=== PATIENT | female | born 1985 | race Caucasian/White ===

== ENCOUNTER 2017-01-09 18:32 | Inpatient (IN) | payer MEDICAID ==
[2017-01-09 18:32] VITALS: BMI 26.6
[2017-01-09 19:48] LABS: RBC URINE 7 /hpf (0-3); URINE BACTERIA RARE (<OCC); URINE BILIRUBIN NEGATIVE (NEGATIVE); URINE BLOOD 1+ (NEGATIVE); URINE COLOR Yellow (YELLOW); URINE GLUCOSE (UA) 3+ mg/dL (Normal); URINE KETONE TRACE mg/dL (NEGATIVE); URINE LEUKOCYTE ESTERASE NEG Leu/uL (Negative); URINE PROTEIN NEGATIVE (NEGATIVE); URINE UROBILINOGEN NORMAL mg/dL (0.2-1.0); WBC URINE 2 /hpf (0-5)
--- NOTE | 2017-01-09 19:55 | C.PDOC ---
History Of Present Illness 31 y/o female pmhx schizophrenia, bipolar presents to the ED with complains of hearing voices. Pt states voices are not telling her to hurt herself or others. Pt also reports sleeping 20 hours every day, polyuria and polydypsia. Pt has insulin pump but does not currently have it on. Denies fever, chills, headache, vomiting or any other complaints. Time Seen by Provider: 01/09/17 19:13 Chief Complaint (Nursing): Psychiatric Evaluation History Per: Patient History/Exam Limitations: no limitations Onset/Duration Of Symptoms: Hrs Current Symptoms Are (Timing): Still Present Modifying Factor(s): None Associated Symptoms: denies: Suicidal Thoughts Involuntary Hold By: None Recent travel outside of the [place]: No Past Medical History Reviewed: Historical Data, Nursing Documentation, Vital Signs Vital Signs: Last Vital Signs Temp 98.4 F 01/09/17 19:15 Pulse 81 01/09/17 19:15 Resp 14 01/09/17 19:15 BP 128/73 01/09/17 19:15 Pulse Ox 100 01/09/17 20:34 - Medical History PMH: Anxiety, Asthma, Bipolar Disorder, Depression, Diabetes, HIV (Pt denies ), Hypothyroidism, Schizophrenia, Sexually Transmitted Disease (Herpes) Surgical History: Cholecystectomy - [facility] Procedures OTHER SKIN & SUBQ I D (04/20/14) Family History: States: Unknown Family Hx - Social History Hx Tobacco Use: No Hx Alcohol Use: Yes Hx Substance Use: Yes - Immunization History Hx Tetanus Toxoid Vaccination: No Hx Influenza Vaccination: Yes Hx Pneumococcal Vaccination: No Review Of Systems Except As Marked, All Systems Reviewed And Found Negative. Constitutional: Negative for: Fever Cardiovascular: Negative for: Chest Pain Respiratory: Negative for: Shortness of Breath Gastrointestinal: Negative for: Nausea, Vomiting Genitourinary: Positive for: Other (polyuria, polydypsia) Neurological: Negative for: Headache Psych: Positive for: Other (hearing voices). Negative for: Suicidal ideation Physical Exam - Physical Exam Appears: Non-toxic, No Acute Distress, Other (morbidly obese, calm and cooperative) Skin: Warm, Dry, No Rash Head: Atraumatic, Normacephalic Oral Mucosa: Moist Neck: Normal, Normal ROM, Supple Chest: Symmetrical Cardiovascular: Rhythm Regular, No Murmur Respiratory: Normal Breath Sounds, No Rales, No Rhonchi, No Wheezing Gastrointestinal/Abdominal: Normal Exam, Soft, No Tenderness Extremity: Normal ROM Extremity: Bilateral: Atraumatic Neurological/Psych: Oriented x3, Normal Speech ED Course And Treatment - Laboratory Results Result Diagrams: 01/09/17 20:00 01/09/17 20:00 Lab Interpretation: Abnormal (hyperglycemia) Urine POC: Negative (tox neg.) O2 Sat by Pulse Oximetry: 100 (room air) Pulse Ox Interpretation: Normal Progress Note: Plan: labs, UA, BGL Reevaluation Time: 20:58 Reassessment Condition: Improved Medical Decision Making Medical Decision Making: poorly controlled DM, POC 395, pt engaged her own insulin pump 2100: schizo vs bipolar? poorly controlled DM may be monitored with FS QAC/HS, using pt's own insulin pump for optimal insulin administration Disposition Doctor Will See Patient In The: Hospital Counseled Patient/Family Regarding: Studies Performed, Diagnosis - Disposition Disposition: HOSPITALIZED Disposition Time: 20:59 Condition: GOOD - Clinical Impression Clinical Impression: Hyperglycemia, Schizo affective schizophrenia - Scribe Statement The provider has reviewed the documentation as recorded by the Royce Sena Provider Attestation: All medical record entries made by the Royce were at my direction and personally dictated by me. I have reviewed the chart and agree that the record accurately reflects my personal performance of the history, physical exam, medical decision making, and the department course for this patient. I have also personally directed, reviewed, and agree with the discharge instructions and disposition.
[2017-01-09 20:02] LABS: BASO # 0.1 K/uL (0.0-0.2); BASO % 0.9 % (0.0-2.0); EOS # 0.2 K/uL (0.0-0.7); EOS % 1.8 % (0.0-4.0); HEMATOCRIT 40.4 % (34.0-47.0); LYMPH # 2.1 K/uL (1.0-4.3); LYMPH % 21.7 % (20.0-40.0); MEAN CELL VOLUME 79.5 fL (81.0-99.0); MEAN CORPUSCULAR HEMOGLOBIN 25.1 pg (27.0-31.0); MEAN CORPUSCULAR HGB CONC 31.5 g/dL (33.0-37.0); MEAN PLATELET VOLUME 9.9 fL (7.2-11.7); MONO # 0.4 K/uL (0.0-0.8); MONO % 4.3 % (0.0-10.0); RED CELL DISTRIBUTION WIDTH 14.4 % (11.5-14.5); WHITE BLOOD COUNT 9.7 K/uL (4.8-10.8)
[2017-01-09 20:10] LABS: CHLORIDE 101 mmol/L (98-107)
[2017-01-09 20:11] LABS: POTASSIUM 4.4 mmol/L (3.6-5.2); SODIUM 134 mmol/L (132-148)
[2017-01-09 20:13] LABS: ALB/GLOB RATIO 1.1 (1.0-2.1); ALKALINE PHOSPHATASE 64 U/L (38-126); ALT/SGPT 18 U/L (9-52); AST/SGOT 23 U/L (14-36); BILIRUBIN,TOTAL 0.7 mg/dL (0.2-1.3); BLOOD UREA NITROGEN 12 mg/dL (7-17); CARBON DIOXIDE 22 mmol/L (22-30); GFR AFRICAN-AMERICAN > 60; TOTAL PROTEIN 7.1 g/dL (6.3-8.3)
[2017-01-09 20:14] LABS: ALCOHOL SERUM < 10 mg/dl (0-10); CALCIUM 8.5 mg/dl (8.6-10.4)
[2017-01-09 20:16] LABS: GLUCOSE,RANDOM 415 mg/dL (65-105)
[2017-01-10] MEDS ORDERED: Pneumococcal 23-Valent Vaccine IM ONE (01:08)
[2017-01-10 11:13] VITALS: O2SAT 99
[2017-01-10] MEDS: Patient's Own Injectable INJ SCH ×2 (16:42→21:10)
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
[2017-01-11] MEDS ORDERED: Levothyroxine 100 MCG TAB PO SCH (06:30)
[2017-01-11] MEDS: Levothyroxine 100 MCG TAB PO SCH (06:47)
[2017-01-11 07:30] VITALS: RESP 16
--- NOTE | 2017-01-11 14:29 | PCM.PYCHPN ---
Psychiatric Progress Note - Psychiatric Progress Note Patient seen today, length of contact: 15 minutes Patient Chief Complaint: I'm feeling much better Problems Identified/Issues Discussed: Patient seen. Chart reviewed. Case discussed with the staff. Issues related to illness and treatment were discussed with the patient. Reported compliant with treatment with no adverse affects. Tolerating treatment very well. Reported feeling much better with the treatment. Her blood sugar despite using insulin pump is note in control. Waiting for an freight adjuster to evaluate the patient. At the time of evaluation, patient was awake alert oriented 3, had no delusions, no auditory or visual hallucinations, no suicidal ideations or homicidal ideations. Medical Problems: Diabetes mellitus Lupus Hypothyroidism Arthritis Obesity Diagnostic Results: Reviewed Medication Change: No Medical Record Reviewed: Yes Consults ordered or reviewed: Operating Cost Clerk Mental Status Examination - Cognitive Function Orientation: Person, Place, Situation, Time Memory: Intact Attention: WNL Concentration: WNL Association: WN Fund of Knowledge: [facility] Decription of patient's judgement and insights: Fair - Mood Mood: Depressed (Less than before) - Affect Affect: Depressed - Speech Speech: Appropriate - Formal Thought Process Formal Thought Process: No Impairment Psychotic Thoughts and Behaviors: None - Suicidal Ideation Suicidal Ideation: No - Homicidal Ideation Homicidal Ideation: No Goal/Treatment Plan - Goal/Treatment Plan Need for Continued Stay: Remain at risks for inpatient hospitalization, Discharge may exacerbated symptoms, Severe functional impairment Progress Toward Problem(s) and Goals/Treatment Plan: Patient education Supportive therapy Continue treatment as before Estimated Date of D/C: 01/17/17 - Smoking Cessation Smoking Cessation Initiated: No Reason for not providing: Patient doesn't smoke cigarettes
[2017-01-11] MEDS: Patient's Own Injectable INJ SCH ×4 (14:45→21:07)
--- NOTE | 2017-01-11 17:39 | CP.PCM.CON ---
<Karen Pichardo - Last Filed: 01/11/17 20:16> History of Present Illness - History of Present Illness History of Present Illness: Medicine Consult: DM1, Hypothyroid, Vaginal bleeding, Lupus. 31 y/o female with PMHx of Lupus, Anxiety, Hypothyroid, Bipolar Disorder, Depression, DM 1, Schizophrenia being evaluated for chronic medical problems. Patient has been having Accuchecks above 400, while on her insulin pump (Humalog ). She takes basal rate of 1.7. Nursing put it up to 2.0 today. Patient has been on pump for the past 5 years. Patient reports accuchecks are usually <300 at home. Patient also admits to body aches/back pain for the past 1 day. She attributes symptoms to Lupus. She take Plaqeinil at home, but has not taken it for the past day. Admits to 100 lb weight gain over the past 6 months. During that time she was only "eating and sleeping". Denies use of steroids recently . Patient also complaining of 3 week history of heavy periods. Patient went to see Financial Economist 2 weeks ago who gave her Provera pill for 5 days. Pill stopped her period for those 5 days but it has since returned. Bed Operator told her "everything was fine". She has had these heavy periods one other time when she was 17. Denies Hx of fibroids or pelvic pain. PMD: Dr. Jimenez Rhumatologist: Dr. Zamudio PMHx: Lupus, Anxiety, Hypothyroid, Bipolar Disorder, Depression, DM 1, Schizophrenia. Medications: Humalog pump, Synthroid 100 mcg daily, Plaquanil, psych meds. Allergies: Lantus (swelling). Social: denies tobacco and drug use. Admits to social alcohol use. SHx: 2 , cholecystectomy. FHx: father with DM, brother and sister with DM, grand parents on both sides with DM. MGM with [place]. Review of Systems - Constitutional Constitutional: Fatigue, Weight Gain. absent: Chills, Fever, Headache - EENT Eyes: absent: Blurred Vision, Change in Vision Nose/Mouth/Throat: Nasal Congestion. absent: Nasal Discharge - Cardiovascular Cardiovascular: Pedal Edema. absent: Chest Pain, Dyspnea, Leg Edema, Palpitations - Respiratory Respiratory: absent: Cough, Dyspnea, Wheezing - Gastrointestinal Gastrointestinal: Constipation. absent: Abdominal Pain, Diarrhea, Nausea, Vomiting - Genitourinary Genitourinary: absent: Difficulty Urinating, Dysuria - Musculoskeletal Musculoskeletal: Back Pain, Numbness, Tingling (hands) - Integumentary Integumentary: absent: Change in Hair, Hirsutism, Lesions - Neurological Neurological: Numbness, Tingling. absent: Dizziness, Headaches, Syncope, Weakness - Psychiatric Psychiatric: Anxiety, Depression - Endocrine Endocrine: Fatigue. absent: Palpitations Past Patient History - Infectious Disease Hx of Infectious Diseases: None - Past Social History Smoking Status: Former Smoker - CARDIAC Hx Hypertension: No - PULMONARY Hx Asthma: Yes (uses adelara) - NEUROLOGICAL Hx Neurological Disorder: No Hx Seizures: No - HEENT Hx HEENT Problems: No - RENAL Hx Chronic Kidney Disease: No - ENDOCRINE/METABOLIC Hx Diabetes Mellitus Type 1: Yes (as a child) Hx Diabetes Mellitus Type 2: Yes (uses her own insulin pump) Hx Hypothyroidism: Yes (synthroid 100 mcg od) Hx Systemic Lupus Erythematosus: Yes (butterfly face) - HEMATOLOGICAL/ONCOLOGICAL Hx Blood Disorders: No Hx Human Immunodeficiency Virus (HIV): No - INTEGUMENTARY Hx Dermatological Problems: Yes Other/Comment: r/t lupus (butterfly face) - MUSCULOSKELETAL/RHEUMATOLOGICAL Hx Musculoskeletal Disorders: No - GASTROINTESTINAL Hx Gastrointestinal Disorders: No - GENITOURINARY/GYNECOLOGICAL Hx Sexually Transmitted Disorders: Yes (Herpes) - PSYCHIATRIC Hx Substance Use: No - SURGICAL HISTORY Hx Surgeries: Yes Hx Section: Yes (2) Hx Cholecystectomy: Yes Hx Tubal Ligation: Yes - ANESTHESIA Hx Anesthesia: No Hx Anesthesia Reactions: No Hx Malignant Hyperthermia: No Meds Allergies/Adverse Reactions: Allergies Allergy/AdvReac Type Severity Reaction Status Date / Time insulin glargine, human Allergy Severe Verified 03/30/16 13:06 recombin. a [From Lantus] - Medications Medications: Current Medications Aripiprazole (Abilify) 30 mg PO HS [facility] Last Admin: 01/10/17 21:04 Dose: 30 mg Escitalopram Oxalate (Lexapro) 20 mg PO DAILY [facility] Last Admin: 01/11/17 10:34 Dose: 20 mg Haloperidol (Haldol) 5 mg PO Q6 PRN PRN Reason: Agitation Haloperidol (Haldol) 5 mg PO HS [facility] Last Admin: 01/10/17 21:01 Dose: 5 mg Home Med (Patient's Own Injectable) 0 unit INJ ACHS [facility] Last Admin: 01/11/17 16:52 Dose: 16.1 unit Hydroxychloroquine Sulfate (Plaquenil) 200 mg PO BID [facility] Last Admin: 01/11/17 10:34 Dose: 200 mg Hydroxyzine HCl (Atarax) 50 mg PO Q6 PRN PRN Reason: Anxiety Last Admin: 01/11/17 12:35 Dose: 50 mg Ibuprofen (Motrin Tab) 600 mg PO Q6H PRN PRN Reason: Pain, severe (8-10) Last Admin: 01/11/17 16:56 Dose: 600 mg Levothyroxine Sodium (Synthroid) 100 mcg PO DAILY@0630 [facility] Last Admin: 01/11/17 06:47 Dose: 100 mcg Lorazepam (Ativan) 1 mg PO Q6 PRN PRN Reason: severe anxiety Topiramate (Topamax) 100 mg PO BID [facility] Last Admin: 01/11/17 10:34 Dose: 100 mg Trazodone HCl (Desyrel) 100 mg PO HS PRN PRN Reason: Insomnia Last Admin: 01/10/17 21:01 Dose: 100 mg Physical Exam - Constitutional Appears: No Acute Distress - Head Exam Head Exam: NORMAL INSPECTION, NORMOCEPHALIC - Eye Exam Eye Exam: EOMI, Normal appearance - ENT Exam ENT Exam: Mucous Membranes Moist - Neck Exam Neck exam: Positive for: Full Rom, Normal Inspection - Respiratory Exam Respiratory Exam: Clear to Auscultation Bilateral, NORMAL BREATHING PATTERN - Cardiovascular Exam Cardiovascular Exam: REGULAR RHYTHM, +S1, +S2 - GI/Abdominal Exam GI & Abdominal Exam: Normal Bowel Sounds, Soft. absent: Tenderness - Extremities Exam Extremities exam: Positive for: pedal edema. Negative for: tenderness - Back Exam Back exam: NORMAL INSPECTION, paraspinal tenderness - Neurological Exam Neurological exam: Alert, Oriented x3 - Psychiatric Exam Psychiatric exam: Normal Affect, Normal Mood - Skin Skin Exam: Dry, Normal Color, Warm Results - Vital Signs Recent Vital Signs: Last Vital Signs Temp 98.3 F 01/11/17 07:29 Pulse 96 H 01/11/17 16:26 Resp 16 01/11/17 07:29 BP 102/61 01/11/17 16:26 Pulse Ox 99 01/10/17 11:12 - Labs Result Diagrams: 01/09/17 20:00 01/09/17 20:00 Labs: Laboratory Results - last 24 hr 01/10/17 01/11/17 01/11/17 20:31 07:25 11:18 POC Glucose (mg/dL) 480 H* 372 H 397 H 01/11/17 15:47 POC Glucose (mg/dL) 463 H* Assessment & Plan (1) Diabetes type 1, uncontrolled Assessment and Plan: ACCUCHECKS ACHS Patient on Abilify which increases glucose Continue Insulin pump at basal rate 2.0. with AC boluses. f/u Hgb A1C Status: Acute (2) Menorrhagia Assessment and Plan: f/u TV/TA pelvic US f/u FSH, prolactin f/u Iron studies and CBC in the AM Status: Acute (3) Lupus (systemic lupus erythematosus) Assessment and Plan: Continue Plaquenil PO daily Status: Acute (4) Back pain Assessment and Plan: f/u X-ray of L-spine Status: Acute (5) Hypothyroid Assessment and Plan: Continue home dose of Synthroid 100 mcg daily f/u TSH Status: Acute (6) Schizo affective schizophrenia Assessment and Plan: Management as per psych team Status: Acute (7) Bipolar 1 disorder Assessment and Plan: Management as per psych team Status: Acute <Staci Whitehead V - Last Filed: 03/25/17 23:37> Results - Vital Signs Recent Vital Signs: Last Vital Signs Temp 97 F L 01/12/17 08:08 Pulse 83 01/12/17 08:08 Resp 16 01/12/17 08:08 BP 108/78 01/12/17 08:08 Pulse Ox 99 01/10/17 11:12 - Labs Result Diagrams: 01/12/17 07:08 01/12/17 07:08 Attending/Attestation - Attestation I have personally seen and examined this patient.: Yes I have fully participated in the care of the patient.: Yes I have reviewed all pertinent clinical information: Yes Notes (Text): This is late computer entry for 01/11/17. Patient seen, examined, and case discussed with day-time resident. Medicine consulted for uncontrolled sugars in patient with history of type 1 diabetes, who uses insulin pump and is knowledge about her insulin pump, as well as co-morbidities including merrorhagia, lupus, hypothyroidism, and obesity. Discussed and agree with the assessment and plan as written by day time resident.
[2017-01-11] MEDS ORDERED: POLYETHYLENE GLYCOL 3350 17 GM/Dose PACKET PO ONE (18:45)
--- NOTE | 2017-01-12 05:12 | CP.PCM.PN ---
<Anthony Neely - Last Filed: 01/12/17 08:11> Subjective - Date & Time of Evaluation Date of Evaluation: 01/12/17 Time of Evaluation: 05:09 - Subjective Subjective: PGY-1 progress note Pt seen and examined at bedside. Nursing reports increase in basal rate of insulin pump to 2 yesterday evening, with elevated but decreasing blood sugar overnight. Pt reports continued heavy menstrual period bleeding. She reports changing her pad 3-4 times per day, with period lasting "several weeks." She has seen her DRY TRANSFER WORKER and was given provera in the past to stop bleeding. She denies dizziness, confusion, chest pain, abd pain, N/V/D/C. Objective - Vital Signs/Intake and Output Vital Signs (last 24 hours): Temp Pulse Resp BP Pulse Ox 98.3 F 96 H 16 102/61 99 01/11/17 07:29 01/11/17 16:26 01/11/17 07:29 01/11/17 16:26 01/10/17 11:12 - Medications Medications: Current Medications Aripiprazole (Abilify) 30 mg PO [facility] Last Admin: 01/11/17 21:07 Dose: 30 mg Escitalopram Oxalate (Lexapro) 20 mg PO DAILY [facility] Last Admin: 01/11/17 10:34 Dose: 20 mg Haloperidol (Haldol) 5 mg PO Q6 PRN PRN Reason: Agitation Haloperidol (Haldol) 5 mg PO [facility] Last Admin: 01/11/17 21:07 Dose: 5 mg Home Med (Patient's Own Injectable) 0 unit INJ ACHS [facility] Last Admin: 01/11/17 21:07 Dose: 11.8 unit Hydroxychloroquine Sulfate (Plaquenil) 200 mg PO BID [facility] Last Admin: 01/11/17 18:23 Dose: 200 mg Hydroxyzine HCl (Atarax) 50 mg PO Q6 PRN PRN Reason: Anxiety Last Admin: 01/11/17 12:35 Dose: 50 mg Ibuprofen (Motrin Tab) 600 mg PO Q6H PRN PRN Reason: Pain, severe (8-10) Last Admin: 01/11/17 16:56 Dose: 600 mg Levothyroxine Sodium (Synthroid) 100 mcg PO DAILY@0630 [facility] Last Admin: 01/11/17 06:47 Dose: 100 mcg Lorazepam (Ativan) 1 mg PO Q6 PRN PRN Reason: severe anxiety Topiramate (Topamax) 100 mg PO BID [facility] Last Admin: 01/11/17 18:23 Dose: 100 mg Trazodone HCl (Desyrel) 100 mg PO HS PRN PRN Reason: Insomnia Last Admin: 01/11/17 21:07 Dose: 100 mg - Constitutional Appears: No Acute Distress - Head Exam Head Exam: NORMAL INSPECTION, NORMOCEPHALIC - Eye Exam Eye Exam: EOMI Pupil Exam: PERRL - ENT Exam ENT Exam: Mucous Membranes Moist - Respiratory Exam Respiratory Exam: Clear to Ausculation Bilateral, NORMAL BREATHING PATTERN - Cardiovascular Exam Cardiovascular Exam: REGULAR RHYTHM, +S1, +S2 - GI/Abdominal Exam GI & Abdominal Exam: Soft, Normal Bowel Sounds - Extremities Exam Extremities Exam: Pedal Edema - Neurological Exam Neurological Exam: Alert, Awake, Oriented x3 - Psychiatric Exam Psychiatric exam: Normal Affect - Skin Skin Exam: Normal Color, Warm Assessment and Plan - Assessment and Plan (Free Text) Plan: (1) Diabetes type 1, uncontrolled Assessment and Plan: ACCUCHECKS ACHS Patient on Abilify which increases glucose Continue Insulin pump at basal rate 2.0. with AC boluses. f/u Hgb A1C (2) Menorrhagia Assessment and Plan: f/u TV/TA pelvic US f/u FSH, prolactin f/u Iron studies and CBC in the AM (3) Lupus (systemic lupus erythematosus) Assessment and Plan: Continue Plaquenil PO daily (4) Back pain Assessment and Plan: f/u X-ray of L-spine (5) Hypothyroid Assessment and Plan: Continue home dose of Synthroid 100 mcg daily f/u TSH Dr. Capps, consulted by Dr. Day - f/u reccs (6) Schizo affective schizophrenia Assessment and Plan: Management as per psych team (7) Bipolar 1 disorder Assessment and Plan: Management as per psych team <Staci Whitehead V - Last Filed: 03/25/17 23:40> Objective - Vital Signs/Intake and Output Vital Signs (last 24 hours): Temp Pulse Resp BP Pulse Ox 97 F L 83 16 108/78 99 01/12/17 08:08 01/12/17 08:08 01/12/17 08:08 01/12/17 08:08 01/10/17 11:12 - Labs Labs: 01/12/17 07:08 01/12/17 07:08 Attending/Attestation - Attestation Notes (Text): This is late computer entry for 01/12/17. Patient discharged by psychiatric prior to my arrival to see the patient.
[2017-01-12] MEDS: Levothyroxine 100 MCG TAB PO SCH (06:50)
[2017-01-12 07:24] LABS: CHLORIDE 103 mmol/L (98-107)
[2017-01-12 07:25] LABS: SODIUM 133 mmol/L (132-148)
[2017-01-12 07:26] LABS: POTASSIUM 3.9 mmol/L (3.6-5.2)
[2017-01-12 07:28] LABS: ALKALINE PHOSPHATASE 65 U/L (38-126); AST/SGOT 16 U/L (14-36); BILIRUBIN,TOTAL 0.4 mg/dL (0.2-1.3); BLOOD UREA NITROGEN 15 mg/dL (7-17); CARBON DIOXIDE 21 mmol/L (22-30); GFR AFRICAN-AMERICAN > 60; TOTAL PROTEIN 6.6 g/dL (6.3-8.3)
[2017-01-12 07:29] LABS: ALT/SGPT 23 U/L (9-52); CALCIUM 7.7 mg/dl (8.6-10.4); GLUCOSE,RANDOM 313 mg/dL (65-105)
[2017-01-12 07:32] LABS: BASO # 0.1 K/uL (0.0-0.2); BASO % 0.7 % (0.0-2.0); EOS # 0.3 K/uL (0.0-0.7); EOS % 3.2 % (0.0-4.0); HEMATOCRIT 40.5 % (34.0-47.0); LYMPH # 2.6 K/uL (1.0-4.3); LYMPH % 30.3 % (20.0-40.0); MEAN CELL VOLUME 80.5 fL (81.0-99.0); MEAN CORPUSCULAR HEMOGLOBIN 25.6 pg (27.0-31.0); MEAN CORPUSCULAR HGB CONC 31.8 g/dL (33.0-37.0); MEAN PLATELET VOLUME 10.3 fL (7.2-11.7); MONO # 0.5 K/uL (0.0-0.8); MONO % 5.5 % (0.0-10.0); RED CELL DISTRIBUTION WIDTH 14.7 % (11.5-14.5); WHITE BLOOD COUNT 8.6 K/uL (4.8-10.8)
[2017-01-12 07:36] LABS: TRANSFERRIN 213.92 mg/dL (206-381)
[2017-01-12 07:41] LABS: IRON 28 ug/dL (37-170)
[2017-01-12 07:47] LABS: FSH 4.3 mIU/mL
[2017-01-12 08:08] VITALS: BP 108/78; PULSE 83; TEMP 97
[2017-01-12 08:21] LABS: FREE T4 1.45 ng/dL (0.78-2.19)
[2017-01-12 09:56] LABS: THYROID STIMULATING HORMONE 9.26 mIU/L (0.46-4.68)
[2017-01-12] MEDS: Patient's Own Injectable INJ SCH (10:36)
--- NOTE | 2017-01-12 16:48 | PCM.PYCHDC ---
Mental Status Examination - Mental Status Examination Orientation: Person, Place, Situation, Time Memory: Intact Mood: Neutral Affect: Other Speech: Appropriate (Appropriate) Attention: WNL Concentration: WNL Association: WNL Fund of Knowledge: WNL Formal Thought Process: No Impairment Description of patient's judgement and insight: Poor Psychotic Thoughts and Behaviors: None Suicidal Ideation: No Current Homicidal Ideation?: No Discharge Summary - Discharge Note Reason for Hospitalization: Schizoaffective disorder bipolar type Psychiatric History (includes Medical, Family, Personal Hx): Schizoaffective disorder, diabetes mellitus, hypothyroidism, lupus, obesity Laboratory Data: Abnormal Lab Results 01/11/17 01/12/17 01/12/17 20:10 07:08 07:08 WBC 8.6 RBC 5.03 Hgb 12.9 Hct 40.5 MCV 80.5 L MCH 25.6 L MCHC 31.8 L RDW 14.7 H Plt Count 233 MPV 10.3 Neut % (Auto) 60.3 Lymph % (Auto) 30.3 [place] % (Auto) 5.5 Eos % (Auto) 3.2 Baso % (Auto) 0.7 Neut # 5.2 Lymph # 2.6 [place] # 0.5 Eos # 0.3 Baso # 0.1 Sodium 133 Potassium 3.9 Chloride 103 Carbon Dioxide 21 L Anion Gap 13 BUN 15 Creatinine 0.9 Est GFR ( Amer) > 60 Est GFR (Non-Af Amer) > 60 POC Glucose (mg/dL) 376 H Random Glucose 313 H Hemoglobin A1c Calcium 7.7 L Iron TIBC % Saturation Transferrin Ferritin 14.7 Total Bilirubin 0.4 AST 16 ALT 23 Alkaline Phosphatase 65 Total Protein 6.6 Albumin 3.4 L Globulin 3.3 Albumin/Globulin Ratio 1.0 Free T4 TSH 3rd Generation 9.26 H FSH 3rd Generation 4.3 Prolactin 32.3 H 01/12/17 01/12/17 01/12/17 07:08 07:08 07:08 WBC RBC Hgb Hct MCV MCH MCHC RDW Plt Count MPV Neut % (Auto) Lymph % (Auto) [place] % (Auto) Eos % (Auto) Baso % (Auto) Neut # Lymph # [place] # Eos # Baso # Sodium Potassium Chloride Carbon Dioxide Anion Gap BUN Creatinine Est GFR ( Amer) Est GFR (Non-Af Amer) POC Glucose (mg/dL) Random Glucose Hemoglobin A1c Calcium Iron 28 L TIBC 303 % Saturation 8 L Transferrin 213.92 Ferritin Total Bilirubin AST ALT Alkaline Phosphatase Total Protein Albumin Globulin Albumin/Globulin Ratio Free T4 1.45 TSH 3rd Generation FSH 3rd Generation Prolactin 01/12/17 01/12/17 01/12/17 07:08 07:32 11:26 WBC RBC Hgb Hct MCV MCH MCHC RDW Plt Count MPV Neut % (Auto) Lymph % (Auto) [place] % (Auto) Eos % (Auto) Baso % (Auto) Neut # Lymph # [place] # Eos # Baso # Sodium Potassium Chloride Carbon Dioxide Anion Gap BUN Creatinine Est GFR ( Amer) Est GFR (Non-Af Amer) POC Glucose (mg/dL) 316 H 345 H Random Glucose Hemoglobin A1c 11.7 H Calcium Iron TIBC % Saturation Transferrin Ferritin Total Bilirubin AST ALT Alkaline Phosphatase Total Protein Albumin Globulin Albumin/Globulin Ratio Free T4 TSH 3rd Generation FSH 3rd Generation Prolactin Consultations:: List each consultation separately and include: 1. Reason for request. 2. Findings. 3. Follow-up Consultations: Reviewed Summary of Hospital Course include:: 1. Description of specific treatment plan utilized for patients during their course of treatmen. 2. Summarize the time- course for resolution of acute symptoms and/or regressed behaviors. 3. Describe issues identified and worked on during hospitalization. 4. Describe medication utilized. 5. Describe medical problems identified and treated. 6. Reassessment of suicide risk Summary of Hospital Course: Patient is 31 years old, single, unemployed, on disability, female with history of schizoaffective disorder bipolar type for last 5 years, following up at [facility] with Dr. Culver was admitted because of increasing depression and auditory hallucinations telling her to jump in front of car. Patient reported she was compliant with treatment. Reported feeling depressed with decreased sleep and increased appetite gained about 100 pounds over the last 6 months. Denied any current or past suicidal or homicidal ideations, had any suicidal attempts. Reported hearing voices telling her to jump in front of car. History of manic episodes in the past. History of 1 inpatient psychiatric admissions at [facility] about 3 years ago. Reported she was using cannabis about 3 blunts daily. Last use reported one year ago. Patient has history of 2 C-sections, tubal ligation and cholecystectomy. She was born in [place]. Currently she is a college. Not working on disability never , has 2 children 14 years and 10 years old both live with the patient. Her height is 5 feet 5 inches and weight is 294 pounds. Patient was started on her home medications. Patient started feeling little better. Her blood sugar was uncontrolled. She had to menstruation bleeding for about 2-3 weeks. 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 Today patient reported no hallucinations and also that she wants to leave. Education provided patient to stay and complete her treatment, patient refused and left AMA. Before patient was educated that in case of any adverse event, including decompensation , relapse, worsening of symptoms or even of the patient, patient will be responsible for her actions. Patient understood and agreed but still refuses to stay to complete her treatment and left AMA. At the time of evaluation and discharge, patient was awake alert oriented 3, had no delusions, no auditory or visual hallucinations, no suicidal ideations or homicidal ideations. Patient was discharged in a stable condition. Patient will have follow-up with her psychiatrist at [facility]. - Final Diagnosis (DSM 5) Condition upon Discharge: GOOD Disposition: AGAINST MEDICAL ADVICE Follow-up Treatment Plan: Patient will have follow-up with her psychiatrist at [facility]. - Smoking Cessation Smoking Cessation Medication prescribed: No Reason for not providing: Patient doesn't smoke cigarettes - Antipsychotic Medications Pt discharged on 2 or more routine antipsychotic medications: Yes - Justification for 2 or more meds Justification other than those listed above:: Patient was prescribed two Antipsychotic medications by he psychiatrist before admission and patient refused to take 1.
== END 2017-01-12 13:09 | disposition left against medical advice (07) | DRG 430 ==
LOC: C.ER 18:32 → C.5E 20:57
DX: F25.0 Schizoaffective disorder, bipolar type (principal); E11.65 Type 2 diabetes mellitus with hyperglycemia; M32.9 Systemic lupus erythematosus, unspecified; E03.9 Hypothyroidism, unspecified; F41.9 Anxiety disorder, unspecified; Z96.41 Presence of insulin pump (external) (internal); J45.909 Unspecified asthma, uncomplicated; Z90.49 Acquired absence of other specified parts of digestive tract; Z87.891 Personal history of nicotine dependence; N92.0 Excessive and frequent menstruation with regular cycle; M54.9 Dorsalgia, unspecified; E66.9 Obesity, unspecified; M19.90 Unspecified osteoarthritis, unspecified site